=== PATIENT | male | born 1965 | race Caucasian/White ===

== ENCOUNTER 2017-08-15 21:04 | Emergency (ER) | payer BC, OTHER ==
[~2017-08-15] VITALS: Ht 167.6 cm; Wt 92.0 kg
[2017-08-15 21:09] VITALS: Ht 167.6 cm; Wt 92.0 kg
[2017-08-16] MEDS ORDERED: HYDROCODONE/APAP (5/325) TAB PO ONE
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
[2017-08-16] MEDS ORDERED: TRAM50TA2 PO (01:11)
[2017-08-16] MEDS ORDERED: NAPR-260 PO (01:12)
[2017-08-16] MEDS ORDERED: CYCL-319 PO (01:12)
[2017-08-16 01:31] VITALS: BP 130/81; PULSE 82; RESP 20; TEMP 98.2
== END 2017-08-16 01:32 | disposition home or self-care (01) ==
LOC: FTE 21:04
DX: R51 Headache (principal); M54.2 Cervicalgia; M54.5 Low back pain; M25.512 Pain in left shoulder; M25.551 Pain in right hip
CPT/HCPCS: 70450; 72100; 72125; 73030; 73510